=== PATIENT | female | born 1965 | race Caucasian/White ===

== ENCOUNTER 2023-02-09 06:11 | Day surgery (SDC) | payer OTHER ==
[~2023-02-09] VITALS: Ht 157.5 cm; Wt 81.8 kg
[2023-02-09] MEDS ORDERED: CEFAZOLIN SOD 2 GM in D5W 50 ML IV ONE (07:00)
[2023-02-09] MEDS ORDERED: ONDANSETRON HCL 4 MG/2 ML VIAL ONE (07:53)
[2023-02-09] MEDS ORDERED: NS IRRIG SOLN 1000 ML IR ONE (07:53)
[2023-02-09] MEDS ORDERED: KETOROLAC TROMETHAMINE 30 MG VIAL ONE (07:53)
[2023-02-09] MEDS ORDERED: PROPOFOL 200MG/ 20ML VIAL (DIPRIVAN) IV ONE (07:53)
[2023-02-09] MEDS ORDERED: fentaNYL CITRATE/PF 100 MCG/2 ML AMP ONE (07:53)
[2023-02-09] MEDS ORDERED: SEVOFLURANE 15 MIN GAS INH ONE (07:53)
[2023-02-09] MEDS ORDERED: MIDAZOLAM HCL/PF 2 MG/2 ML SYRINGE ONE (07:53)
[2023-02-09] MEDS ORDERED: LR 1,000 ML IV.SOLN IV ONE (07:53)
[2023-02-09] MEDS ORDERED: METOCLOPRAMIDE HCL 10 MG/2 ML VIAL IVP PRN (08:45)
[2023-02-09] MEDS ORDERED: HYDROmorphone 1 MG/ML INJ. CARTRIDGE IVP PRN (08:45)
[2023-02-09] MEDS ORDERED: ONDANSETRON HCL 4 MG/2 ML VIAL IVP PRN (08:45)
[2023-02-09] MEDS ORDERED: KETOROLAC TROMETHAMINE 30 MG VIAL IVP PRN (08:45)
[2023-02-09] MEDS ORDERED: IBUPROFEN 600 MG TABLET PO ONE (08:45)
[2023-02-09 13:31] VITALS: BP_SYST 107
== END 2023-02-09 11:45 | disposition home or self-care (01) ==
LOC: SDS 06:11 → SMU 06:38 → SDS 11:45
PROVIDERS: ATTEND Orthopaedic Surgery Sports Medicine
DX: S51.002A Unspecified open wound of left elbow, initial encounter (principal); I10 Essential (primary) hypertension; E78.5 Hyperlipidemia, unspecified; E21.3 Hyperparathyroidism, unspecified; X58.XXXA Exposure to other specified factors, initial encounter; Y93.89 Activity, other specified; Y92.89 Other specified places as the place of occurrence of the external cause; Y99.8 Other external cause status
CPT/HCPCS: 11042; J0690; J1885; J3465; J2405; J2704; J3010; J7060; J7120

== ENCOUNTER 2023-05-31 05:13 | Inpatient (IN) | payer OTHER ==
[2023-05-25 10:20] LABS: BASOPHILS % (AUTO) 0.6 % (0.0-2.0); EOSINOPHILS # (AUTO) 0.1 K/uL (0.0-0.4); EOSINOPHILS % (AUTO) 0.9 % (0.0-4.0); HEMATOCRIT 43.8 % (36-48); HEMOGLOBIN 14.3 g/dL (12.0-16.0); LYMPHOCYTES # (AUTO) 3.4 K/uL (1.0-5.5); LYMPHOCYTES % (AUTO) 41.8 % (20.5-51.5); MEAN CORPUSCULAR HEMOGLOBIN 28 pg (27-31); MEAN CORPUSCULAR HGB CONC 33 % (32-36); MEAN CORPUSCULAR VOLUME 87 fL (79.0-98.0); MONOCYTES # (AUTO) 0.4 K/uL (0.0-1.0); MONOCYTES % (AUTO) 4.8 % (1.7-9.3); NEUTROPHILS # (AUTO) 4.2 K/uL (1.8-7.7); NEUTROPHILS % (AUTO) 51.9 % (40.0-70.0); PLATELET COUNT (AUTO) 221 K/uL (130-430); RED BLOOD CELL COUNT(AUTO) 5.02 MIL/uL (4.2-6.2); RED CELL DISTRIBUTION WIDTH 13.1 % (9.0-15.0)
[2023-05-25 10:42] LABS: PROTHROMBIN TIME 10.1 SECS (9.5-12.5)
[2023-05-25 10:46] LABS: CALCIUM 8.8 mg/dL (8.4-11.0); CREATININE 0.82 mg/dL (0.55-1.30); POTASSIUM 4.1 mmol/L (3.5-5.1); TOTAL BILIRUBIN 0.4 mg/dL (0.0-1.0); TOTAL PROTEIN, SERUM 8.5 g/dL (6.4-8.3)
[~2023-05-31] VITALS: Ht 157.5 cm; Wt 81.2 kg
[2023-05-31] MEDS ORDERED: SCOPOLAMINE HYDROBROMIDE 1 MG PATCH .72 H (TRANSDERM-SCOP) TD ONE ×2 (05:37→06:00)
[2023-05-31] MEDS ORDERED: ACETAMINOPHEN 500 MG TABLET ONE (05:37)
[2023-05-31] MEDS ORDERED: CELECOXIB 100 MG CAPSULE ONE (05:37)
[2023-05-31] MEDS ORDERED: oxyCODONE HCL 10 MG TAB.ER.12H PO ONE ×2 (05:38→06:00)
[2023-05-31] MEDS ORDERED: GABAPENTIN 300 MG CAPSULE ONE (05:38)
[2023-05-31] MEDS ORDERED: ACETAMINOPHEN 500 MG TABLET PO ONE (06:00)
[2023-05-31] MEDS ORDERED: GABAPENTIN 300 MG CAPSULE PO ONE (06:00)
[2023-05-31] MEDS ORDERED: CELECOXIB 100 MG CAPSULE PO ONE (06:00)
[2023-05-31] MEDS ORDERED: CEFAZOLIN SOD 2 GM in D5W 50 ML IV ONE (06:00)
[2023-05-31] MEDS ORDERED: LEVO100T PO (06:42)
[2023-05-31] MEDS ORDERED: ATOR20TA64 PO (06:42)
[2023-05-31] MEDS ORDERED: LIDOCAINE 1% 10 MG/ML, 20 ML MDV ONE (07:20)
[2023-05-31] MEDS ORDERED: MIDAZOLAM HCL 5 MG/5 ML VIAL ONE (07:20)
[2023-05-31] MEDS ORDERED: ROCURONIUM BROMIDE 10 MG/ML (ZEMURON) ONE (07:20)
[2023-05-31] MEDS ORDERED: VANCOMYCIN HCL 1000 MG/VIAL IV ONE (07:20)
[2023-05-31] MEDS ORDERED: GLYCOPYRROLATE 0.2 MG/ML VIAL ONE (07:20)
[2023-05-31] MEDS ORDERED: NEOSTIGMINE METHYLSULFATE 1 MG/ML, 10 ML VIAL ONE (07:20)
[2023-05-31] MEDS ORDERED: SUCCINYLCHOLINE CHLORIDE 20 MG/ML(QUELICIN) ONE (07:20)
[2023-05-31] MEDS ORDERED: PROPOFOL 200MG/ 20ML VIAL (DIPRIVAN) IV ONE (07:20)
[2023-05-31] MEDS ORDERED: SEVOFLURANE 15 MIN GAS INH ONE (07:20)
[2023-05-31] MEDS ORDERED: METOCLOPRAMIDE HCL 10 MG/2 ML VIAL ONE (07:20)
[2023-05-31] MEDS ORDERED: ONDANSETRON HCL 4 MG/2 ML VIAL ONE (07:20)
[2023-05-31] MEDS ORDERED: TRANEXAMIC ACID 1,000 MG/10 ML VIAL ONE (07:20)
[2023-05-31] MEDS ORDERED: fentaNYL CITRATE/PF 100 MCG/2 ML AMP ONE (07:20)
[2023-05-31] MEDS ORDERED: NS IRRIG SOLN 1000 ML IR ONE (07:20)
[2023-05-31] MEDS ORDERED: LR 1,000 ML IV.SOLN IV ONE (07:20)
[2023-05-31] MEDS ORDERED: HYDROmorphone 2 MG/ML VIAL ONE (07:20)
[2023-05-31] MEDS ORDERED: WATER FOR IRRIGATION,STERILE 1,000 ML IRRIG.SOLN IR ONE (07:20)
[2023-05-31] MEDS ORDERED: ePHEDrine sulfate 50 MG/ML VIAL ONE (07:20)
[2023-05-31] MEDS ORDERED: KETOROLAC TROMETHAMINE 30 MG VIAL IVP PRN (08:30)
[2023-05-31] MEDS ORDERED: HYDROmorphone 1 MG/ML INJ. CARTRIDGE IVP PRN ×3 (08:30→11:00)
[2023-05-31] MEDS ORDERED: ONDANSETRON HCL 4 MG/2 ML VIAL IVP PRN ×2 (08:30→11:45)
[2023-05-31] MEDS ORDERED: LR 1,000 ML IV SCH (08:30)
[2023-05-31] MEDS ORDERED: HYDROmorphone 2 MG/ML VIAL IVP PRN (08:30)
[2023-05-31] MEDS ORDERED: BUPIVACAINE LIPOSOME/PF 266 MG/20 ML VIAL INFIL ONE (09:38)
[2023-05-31] MEDS ORDERED: BISACODYL 10 MG/SUPPOSITORY RC PRN (10:15)
[2023-05-31] MEDS ORDERED: DIPHENHYDRAMINE HCL 25 MG CAPSULE PO PRN (10:15)
[2023-05-31] MEDS ORDERED: LACTULOSE 20 GM/30 ML UDC PO PRN (10:15)
[2023-05-31] MEDS ORDERED: METOCLOPRAMIDE HCL 10 MG/2 ML VIAL IVP PRN (10:15)
[2023-05-31] MEDS ORDERED: NALOXONE HCL 0.4 MG/ML AMP (NARCAN) IVP PRN ×3 (10:15)
[2023-05-31] MEDS ORDERED: traMADol HCL HCL 50 MG TABLET (ULTRAM) PO PRN (11:00)
[2023-05-31] MEDS ORDERED: oxyCODONE HCL 5 MG TABLET PO PRN ×2 (11:00)
[2023-05-31] MEDS ORDERED: LORATADINE 10 MG TABLET PO PRN (11:00)
[2023-05-31 11:32] VITALS: BP_SYST 116; PULSE 64; RESP 9; TEMP 96.1; O2SAT 100
[2023-05-31] MEDS: KETOROLAC TROMETHAMINE 10 MG TABLET (TORADOL) PO SCH ×2 (14:32→21:25)
[2023-05-31] MEDS: ACETAMINOPHEN 500 MG TABLET PO SCH ×2 (14:32→21:26)
[2023-05-31] MEDS: ceFAZolin SODIUM 2 GM in D5W 50 ML IV SCH ×2 (14:34→21:21)
[2023-05-31 17:14] VITALS: BP_SYST 121; PULSE 75; RESP 14; TEMP 97.7; O2SAT 95
[2023-05-31] MEDS: HYDROmorphone 1 MG/ML INJ. CARTRIDGE IVP PRN (17:14)
[2023-05-31 20:00] VITALS: BP_SYST 104; PULSE 74; RESP 14; TEMP 97.4; O2SAT 98; O2SAT 99
[2023-05-31] MEDS: SENNOSIDES/DOCUSATE SODIUM 1 TAB TABLET(SENOKOT-S) PO SCH (21:20)
[2023-06-01 01:09] VITALS: BP_SYST 107; PULSE 87; RESP 16; TEMP 98.1; O2SAT 96
[2023-06-01] MEDS: HYDROmorphone 1 MG/ML INJ. CARTRIDGE IVP PRN (01:14)
[2023-06-01] MEDS: ceFAZolin SODIUM 2 GM in D5W 50 ML IV SCH (04:55)
[2023-06-01 05:02] LABS: BASOPHILS % (AUTO) 0.2 % (0.0-2.0); EOSINOPHILS % (AUTO) 0.2 % (0.0-4.0); HEMATOCRIT 31.6 % (36-48); HEMOGLOBIN 10.3 g/dL (12.0-16.0); LYMPHOCYTES # (AUTO) 1.7 K/uL (1.0-5.5); LYMPHOCYTES % (AUTO) 20.9 % (20.5-51.5); MEAN CORPUSCULAR HEMOGLOBIN 29 pg (27-31); MEAN CORPUSCULAR HGB CONC 33 % (32-36); MEAN CORPUSCULAR VOLUME 88 fL (79.0-98.0); MONOCYTES # (AUTO) 0.5 K/uL (0.0-1.0); MONOCYTES % (AUTO) 5.7 % (1.7-9.3); NEUTROPHILS # (AUTO) 5.9 K/uL (1.8-7.7); PLATELET COUNT (AUTO) 156 K/uL (130-430); RED BLOOD CELL COUNT(AUTO) 3.61 MIL/uL (4.2-6.2); RED CELL DISTRIBUTION WIDTH 13.3 % (9.0-15.0); WHITE BLOOD COUNT (AUTO) 8.1 K/uL (4.8-10.8)
[2023-06-01 05:20] LABS: ALBUMIN 2.7 g/dL (3.4-4.8); CREATININE 0.86 mg/dL (0.55-1.30); POTASSIUM 3.6 mmol/L (3.5-5.1); TOTAL BILIRUBIN 0.3 mg/dL (0.0-1.0); TOTAL PROTEIN, SERUM 5.9 g/dL (6.4-8.3)
[2023-06-01] MEDS: KETOROLAC TROMETHAMINE 10 MG TABLET (TORADOL) PO SCH (05:48)
[2023-06-01] MEDS: ACETAMINOPHEN 500 MG TABLET PO SCH (05:49)
[2023-06-01 08:00] VITALS: BP_SYST 105; PULSE 80; RESP 18; TEMP 97.5; O2SAT 99
[2023-06-01] MEDS ORDERED: DECADRON 4 MG TABLET PO SCH (09:00)
[2023-06-01] MEDS ORDERED: ASPIRIN 81 MG TAB.CHEW PO SCH (09:00)
[2023-06-01] MEDS: SENNOSIDES/DOCUSATE SODIUM 1 TAB TABLET(SENOKOT-S) PO SCH (09:57)
[2023-06-01 10:43] VITALS: BP_SYST 98; PULSE 78; RESP 18; TEMP 98.9; O2SAT 100
[2023-06-01] MEDS ORDERED: CELECOXIB 200 MG CAPSULE PO SCH (11:00)
[2023-06-01 11:30] VITALS: BP_SYST 100; PULSE 92; RESP 18; TEMP 99.6; O2SAT 95
== END 2023-06-01 11:25 | disposition home health service (06) | DRG 470 ==
LOC: SMU 05:13
PROVIDERS: ADMIT Student in an Organized Health Care Education/Training Program; ATTEND Student in an Organized Health Care Education/Training Program
PROC: 0SR90JA Replacement of Right Hip Joint with Synthetic Substitute, Uncemented, Open Approach (ICD-10-PCS; principal; 2023-05-31 07:30)
DX: M16.11 Unilateral primary osteoarthritis, right hip (principal); Q89.9 Congenital malformation, unspecified
CPT/HCPCS: 36415; 72170-TC; 73501; 80053; 85025; 85610-TC; 85730-TC; 87081; 88304; 88311; 96379; 97110-GP; 97116-GP; 97530-GP; A4649; C1713; C1776; C9290; J0330; J0690; J1170; J2001; J2250; J2405; J2704; J2710; J2765; J3010; J3370; J3490; J7060; J7120; J8540